=== PATIENT | female | born 1960 | race Caucasian/White ===

== ENCOUNTER 2019-11-15 14:51 | Inpatient (IN) | payer MEDICAID ==
[~2019-11-15] VITALS: Ht 152.4 cm; Wt 109.8 kg
[~2019-11-15 14:51] MED LIST: HYDR25TA PO; LOSA100T32 PO; NAPR-1176 PO; RANI-655 PO
[2019-11-15] MEDS ORDERED: MECLIZINE 25MG TABLET PO ONE (15:45)
[2019-11-15] MEDS ORDERED: SODIUM CHLORIDE 0.9% 100 ML IV ONE (15:45)
[2019-11-15 16:19] LABS: BASOPHILS % 0.7 % (0.0-2.0); EOSINOPHILS % 2.5 % (0.0-5.0); HEMATOCRIT. 33.3 % (36.0-48.0); HEMOGLOBIN. 11.2 g/dL (12.0-16.0); LYMPHOCYTES % 19.9 % (20.0-50.0); MEAN CORPUSCULAR HEMOGLOBIN 31.3 pg (28.0-32.0); MEAN CORPUSCULAR VOLUME 93.5 fL (81.0-99.0); MEAN PLATELET VOLUME 7.8 fl (7.4-10.4); MONOCYTES % 8.8 % (2.0-8.0); NEUTROPHILS % 68.1 % (40.0-76.0); PLATELET 239 x1000/uL (130-400); RED BLOOD CELL COUNT 3.57 mill/uL (4.2-5.4); RED CELL DISTRIBUTION WIDTH 13.5 % (11.6-14.6)
[2019-11-15 16:21] LABS: CHLORIDE 107 mEq/L (98-107)
[2019-11-15 16:24] LABS: PARTIAL THROMBOPLASTIN TIME 27.3 sec (23.4-31.0); PROTHROMBIN TIME 10.6 sec (9.6-11.0)
[2019-11-15] MEDS ORDERED: DIPHENHYDRAMINE 50MG/ML VIAL IV ONE (17:45)
[2019-11-15] MEDS ORDERED: METOCLOPRAMIDE HCL 10MG/2ML VIAL IV ONE (17:45)
[2019-11-16 10:00] VITALS: BP 152/75
[2019-11-16 10:10] VITALS: BP 152/75
[2019-11-16 10:32] VITALS: BP 152/75
[2019-11-16] MEDS ORDERED: GABA-533 MT (10:55)
[2019-11-16] MEDS ORDERED: FOLI-43 MT (10:55)
[2019-11-16] MEDS ORDERED: SIMV-43 MT (10:55)
[2019-11-16] MEDS ORDERED: METF-414 MT (10:55)
[2019-11-16] MEDS ORDERED: B CM1TAB MT (10:55)
[2019-11-16] MEDS ORDERED: AMLO5TAB88 MT (10:55)
[2019-11-16] MEDS ORDERED: DULO60CA64 MT (10:55)
[2019-11-16] MEDS ORDERED: FERR325T6 MT (10:55)
[2019-11-16] MEDS ORDERED: PANT20TA3 MT (10:55)
[2019-11-16] MEDS ORDERED: LEVO75TA7 MT (10:55)
[2019-11-16] MEDS ORDERED: METH2.5T MT (10:55)
[2019-11-16] MEDS ORDERED: CALC-3 MT (10:55)
[2019-11-16] MEDS ORDERED: LISI40TA4 MT (10:55)
[2019-11-16 12:00] VITALS: BP 122/59
[2019-11-16] MEDS ORDERED: PNEUMOCOCCAL 23-VAL P-SAC VAC 0.5 ML IM ONE (12:00)
[2019-11-16] MEDS ORDERED: METHOTREXATE SODIUM 2 . 5MG TABLET PO SCH (12:30)
[2019-11-16] MEDS ORDERED: DEXTROSE 50% WATER 50ML SYRINGE IV PRN (13:00)
[2019-11-16] MEDS ORDERED: MECLIZINE 25MG TABLET PO PRN (13:00)
[2019-11-16] MEDS: GABAPENTIN 400MG CAPSULE PO SCH ×2 (13:14→16:56)
[2019-11-16] MEDS: AMLODIPINE 5MG TABLET PO SCH (13:14)
[2019-11-16] MEDS: LEVOTHYROXINE SODIUM 75MCG TABLET PO SCH (13:15)
[2019-11-16 16:00] VITALS: BP 134/62
[2019-11-16] MEDS: CALCIUM CARBONATE/VITAMIN D3 500MG TABLET PO SCH (16:56)
[2019-11-16] MEDS: BLOOD SUGAR DIAGNOSTIC STRIP TEST SCH ×2 (16:56→21:06)
[2019-11-16] MEDS: METFORMIN HCL 500MG TABLET PO SCH (16:56)
[2019-11-16] MEDS: INSULIN LISPRO 100 UNITS/ML SUBCUT SCH ×2 (16:58→21:00)
[2019-11-16] MEDS: TRAMADOL 50MG TABLET PO PRN (18:54)
[2019-11-16 20:00] VITALS: BP 117/56
[2019-11-16] MEDS ORDERED: ATORVASTATIN CALCIUM 40MG TABLET PO SCH (21:00)
[2019-11-17] VITALS: BP 127/57
[2019-11-17 04:00] VITALS: BP 111/57
[2019-11-17] MEDS: LEVOTHYROXINE SODIUM 75MCG TABLET PO SCH (05:49)
[2019-11-17] MEDS: BLOOD SUGAR DIAGNOSTIC STRIP TEST SCH ×2 (05:49→12:19)
[2019-11-17] MEDS: INSULIN LISPRO 100 UNITS/ML SUBCUT SCH ×2 (05:56→12:19)
[2019-11-17] MEDS ORDERED: PANTOPRAZOLE 40MG DR TABLET PO SCH (07:20)
[2019-11-17 08:00] VITALS: BP 113/64
[2019-11-17] MEDS: AMLODIPINE 5MG TABLET PO SCH (08:37)
[2019-11-17] MEDS: CALCIUM CARBONATE/VITAMIN D3 500MG TABLET PO SCH (08:37)
[2019-11-17] MEDS: GABAPENTIN 400MG CAPSULE PO SCH ×2 (08:37→13:25)
[2019-11-17] MEDS: METFORMIN HCL 500MG TABLET PO SCH (08:38)
[2019-11-17] MEDS: TRAMADOL 50MG TABLET PO PRN (08:41)
[2019-11-17] MEDS ORDERED: METHOTREXATE SODIUM 2 . 5MG TABLET PO SCH (09:00)
[2019-11-17] MEDS ORDERED: FOLIC ACID 1MG TABLET PO SCH (09:00)
[2019-11-17] MEDS ORDERED: DULOXETINE HCL 60MG DR CAPSULE PO SCH (09:00)
[2019-11-17] MEDS ORDERED: LISINOPRIL 40MG TABLET PO SCH (09:00)
[2019-11-17 12:00] VITALS: BP 131/70
[2019-11-17 12:52] VITALS: BP 131/70
== END 2019-11-17 13:28 | disposition home or self-care (01) | DRG 111 ==
LOC: ER 14:51 → 6EST 11-16 03:22 → ENRESERV 11-16 09:22 → EDBEDREQ 11-16 09:33
PROVIDERS: ADMIT Internal Medicine; ATTEND Internal Medicine
DX: H81.399 Other peripheral vertigo, unspecified ear (principal); R51 Headache; E03.9 Hypothyroidism, unspecified; E11.9 Type 2 diabetes mellitus without complications; E78.5 Hyperlipidemia, unspecified; H93.19 Tinnitus, unspecified ear; I10 Essential (primary) hypertension; M06.9 Rheumatoid arthritis, unspecified; Z98.84 Bariatric surgery status; Z79.899 Other long term (current) drug therapy; Z90.49 Acquired absence of other specified parts of digestive tract; G90.8 Other disorders of autonomic nervous system
CPT/HCPCS: 36415; 71045; 80053; 82962; 83036; 85025; 93005; 97162; 99285; J1200; J1815; J2765; J7050; J8597; J8610

== ENCOUNTER 2020-02-19 17:29 | Emergency (ER) | payer MEDICAID, OTHER ==
[~2020-02-19] VITALS: Ht 154.9 cm; Wt 109.0 kg
[~2020-02-19 17:29] MED LIST changes: +AMLO5TAB88 MT; +B CM1TAB MT; +CALC-3 MT; +DULO60CA64 MT; +FERR325T6 MT; +FOLI-43 MT; +GABA-533 MT; -HYDR25TA PO; +LEVO75TA7 MT; +LISI40TA4 MT; -LOSA100T32 PO; +METF-414 MT; +METH2.5T MT; -NAPR-1176 PO; +PANT20TA3 MT; -RANI-655 PO; +SIMV-43 MT
[2020-02-19 17:31] VITALS: BP 153/44
[2020-02-19] MEDS ORDERED: ACETAMINOPHEN 325MG TABLET PO STA (20:28)
[2020-02-19] MEDS ORDERED: FLUORESCEIN SODIUM 1MG/STRIP RIGHTEYE ONE (20:30)
[2020-02-19] MEDS ORDERED: BALANCED SALT IRRIG SOLN 15ML IR ONE (20:30)
[2020-02-19] MEDS ORDERED: TETRACAINE 0.5% OPHTH DROPS 4ML RIGHTEYE ONE (20:30)
== END 2020-02-19 21:30 | disposition home or self-care (01) ==
LOC: ER 17:29
DX: H11.31 Conjunctival hemorrhage, right eye (principal)
CPT/HCPCS: 99283

== ENCOUNTER 2023-04-27 12:26 | Inpatient (IN) | payer MEDICAID, OTHER ==
[~2023-04-27] VITALS: Ht 165.1 cm; Wt 89.4 kg
[~2023-04-27 12:26] MED LIST changes: -GABA-533 MT; +GABA-534 MT; +LISI40TA13 MT; -LISI40TA4 MT; +PANT20TA17 MT; -PANT20TA3 MT
[2023-04-27] MEDS: ASPIRIN 81MG TABLET PO ONE (13:09)
[2023-04-27 13:23] LABS: BASOPHILS % 0.7 % (0.0-2.0); EOSINOPHILS % 0.6 % (0.0-5.0); HEMATOCRIT. 35.9 % (36.0-48.0); HEMOGLOBIN. 11.9 g/dL (12.0-16.0); LYMPHOCYTES % 10.8 % (20.0-50.0); MEAN CORPUSCULAR HEMOGLOBIN 31.3 pg (28.0-32.0); MEAN CORPUSCULAR HGB CONC 33.3 g/dL (31.0-37.0); MEAN PLATELET VOLUME 7.7 fl (7.4-10.4); MONOCYTES % 5.9 % (2.0-8.0); PLATELET 239 x1000/uL (130-400); RED BLOOD CELL COUNT 3.82 mill/uL (4.2-5.4); RED CELL DISTRIBUTION WIDTH 13.2 % (11.6-14.6); WHITE BLOOD COUNT 7.8 x1000/uL (4.5-11.0)
[2023-04-27 14:04] LABS: ALANINE AMINOTRANSFERASE 11 IU/L (10-49); ASPARTATE AMINOTRANSFERASE 25 IU/L (<34); BILIRUBIN TOTAL 0.5 mg/dL (0.1-1.0); CALCIUM 9.5 mg/dL (8.7-10.4); CARBON DIOXIDE 27 mEq/L (21-32); CHLORIDE 103 mEq/L (98-107); GLUCOSE 143 mg/dL (70-105); PROTEIN TOTAL 6.4 g/dL (6.0-8.3); SODIUM 137 mEq/L (136-145); TROPONIN I HIGH SENSITIVITY 5 ng/L (3.0-34); UREA NITROGEN BLOOD 15 mg/dL (9-23)
[2023-04-27 14:33] LABS: PROTHROMBIN TIME 10.7 sec (9.6-11.0)
[2023-04-27 15:11] LABS: TROPONIN I HIGH SENSITIVITY 7 ng/L (3.0-34)
[2023-04-27 20:00] VITALS: BP_SYST 101; BP_SYST 123; BP_DIAS 58; BP_DIAS 64; PULSE 63; PULSE 72; RESP 18; TEMP 97.7
[2023-04-27] MEDS ORDERED: DEXTROSE 50% WATER 50ML SYRINGE IV PRN (20:30)
[2023-04-27] MEDS: INSULIN LISPRO 100 UNITS/ML SUBCUT SCH (20:52)
[2023-04-27] MEDS: BLOOD SUGAR DIAGNOSTIC STRIP TEST SCH (20:52)
[2023-04-27] MEDS: ATORVASTATIN CALCIUM 20MG TABLET PO SCH (21:26)
[2023-04-27] MEDS: GABAPENTIN 400MG CAPSULE PO SCH (21:26)
[2023-04-27 22:26] VITALS: BP 123/64; PULSE 72; RESP 18; TEMP 97.7
[2023-04-28] VITALS: BP 106/60; PULSE 63; RESP 18; TEMP 97.5
[2023-04-28 02:30] LABS: BASOPHILS % 0.9 % (0.0-2.0); EOSINOPHILS % 2.8 % (0.0-5.0); HEMATOCRIT. 32.2 % (36.0-48.0); HEMOGLOBIN. 10.9 g/dL (12.0-16.0); LYMPHOCYTES % 27.3 % (20.0-50.0); MEAN CORPUSCULAR HEMOGLOBIN 31.8 pg (28.0-32.0); MEAN CORPUSCULAR HGB CONC 33.8 g/dL (31.0-37.0); MEAN CORPUSCULAR VOLUME 94.2 fL (81.0-99.0); MEAN PLATELET VOLUME 8.4 fl (7.4-10.4); MONOCYTES % 9.4 % (2.0-8.0); NEUTROPHILS % 59.6 % (40.0-76.0); PLATELET 239 x1000/uL (130-400); RED BLOOD CELL COUNT 3.42 mill/uL (4.2-5.4); RED CELL DISTRIBUTION WIDTH 13.5 % (11.6-14.6); WHITE BLOOD COUNT 6.7 x1000/uL (4.5-11.0)
[2023-04-28 02:49] LABS: TROPONIN I HIGH SENSITIVITY 8 ng/L (3.0-34)
[2023-04-28 02:51] LABS: CARBON DIOXIDE 27 mEq/L (21-32); CHLORIDE 103 mEq/L (98-107); CHOLESTEROL 108 mg/dL (<200); CREATININE 0.7 mg/dL (0.6-1.0); GLUCOSE 79 mg/dL (70-105); HDL CHOLESTEROL 49 mg/dL (>65); LDL CHOLESTEROL 54 mg/dL (5-100); POTASSIUM 3.8 mEq/L (3.5-5.1); SODIUM 138 mEq/L (136-145); TRIGLYCERIDE 64 mg/dL (0-150); UREA NITROGEN BLOOD 15 mg/dL (9-23)
[2023-04-28 04:00] VITALS: BP 104/51; PULSE 62; RESP 18; TEMP 98.4
[2023-04-28] MEDS: LEVOTHYROXINE SODIUM 75MCG TABLET PO SCH (06:28)
[2023-04-28] MEDS ORDERED: METFORMIN HCL 500MG TABLET PO SCH (07:40)
[2023-04-28 08:00] VITALS: BP 111/51; PULSE 64; RESP 18; TEMP 97.7
[2023-04-28] MEDS: LISINOPRIL 20MG TABLET PO SCH (09:18)
[2023-04-28] MEDS: AMLODIPINE 10MG TABLET PO SCH (09:18)
[2023-04-28 12:00] VITALS: BP 103/51; PULSE 68; RESP 18; TEMP 97.7
[2023-04-28 14:19] LABS: CLARITY URINE CLEAR (CLEAR); COLOR URINE YELLOW (YELLOW); GLUCOSE URINE NEGATIVE (NEGATIVE); KETONES URINE NEGATIVE (NEGATIVE); LEUKOCYTE ESTERASE URINE TRACE (NEGATIVE); NITRITE URINE NEGATIVE (NEGATIVE); OCCULT BLOOD URINE NEGATIVE (NEGATIVE); PH URINE 7.5 (4.5-8.0); PROTEIN URINE NEGATIVE (NEGATIVE); SPECIFIC GRAVITY URINE 1.014 (1.005-1.030)
[2023-04-28 14:38] LABS: RBC URINE 0-2 /hpf (0-2); SQUAMOUS EPITHELIAL CELL URINE 1+ /lpf (RARE/1+); YEAST URINE NONE SEEN
[2023-04-28 14:39] LABS: BACTERIA URINE FEW
[2023-04-28 16:00] VITALS: BP 113/39; PULSE 69; RESP 18; TEMP 96.8
[2023-04-28 18:42] VITALS: BP 103/51; PULSE 68; TEMP 98.2; O2SAT 98
== END 2023-04-28 19:15 | disposition home or self-care (01) | DRG 48 ==
LOC: ER 12:26 → 8WST 16:07 → EDBEDREQTM 16:16 → EDBEDREQ 16:16
PROVIDERS: ADMIT Internal Medicine; ATTEND Internal Medicine
DX: G90.8 Other disorders of autonomic nervous system (principal); E11.22 Type 2 diabetes mellitus with diabetic chronic kidney disease; I13.10 Hypertensive heart and chronic kidney disease without heart failure, with stage 1 through stage 4 chronic kidney disease, or unspecified chronic kidney disease; D64.9 Anemia, unspecified; E03.9 Hypothyroidism, unspecified; E66.9 Obesity, unspecified; E78.2 Mixed hyperlipidemia; R07.89 Other chest pain; N18.30 Chronic kidney disease, stage 3 unspecified; Z98.84 Bariatric surgery status; Z79.899 Other long term (current) drug therapy; E86.0 Dehydration
CPT/HCPCS: 36415; 71045; 80048; 80053; 80061; 81003; 82962; 83036; 83880; 84484; 85025; 93005; 93306; 99285